=== PATIENT | female | born 1970 | race Caucasian/White ===

== ENCOUNTER 2024-11-21 05:44 | Day surgery (SDC) | payer OTHER ==
[~2024-11-21] VITALS: Ht 168 cm; Wt 140.3 kg
[~2024-11-21 05:44] MED LIST: AMLO10 PO; DULO60 PO; LOSARTAN POTASS50 M1 PO; METF500 PO; MULTI-VITAMIN1 EAC2 PO; OTEZLA30 MG PO; VITAMIN D31000 UNI1 PO
[2024-11-21] MEDS ORDERED: Lactated Ringer's 1,000 ML IV SCH (06:20)
[2024-11-21 07:04] VITALS: BP 133/84
--- NOTE | 2024-11-21 07:16 | NUR ---
History, Chart, Medications and Allergies reviewed before start of procedure. Patient up to Ambulate independently. Gait steady. Pre-Op teaching done. Pt verbalizes understanding. Patient confirms NPO status and agrees with scheduled surgery. Patient states colon prep results clear. Patient States Post-Procedure ride home has been arranged.
[2024-11-21] MEDS ORDERED: propofoL 60 ML IV ONE (07:25)
--- NOTE | 2024-11-21 07:31 | NUR ---
11/21/24 0731 Stephenie Boyd History, Chart, Medications and Allergies reviewed before start of procedure.MONITOR INTACT WITH CONTINUOUS PULSE OXIMETRY, CONTINUOUS END TITAL CO2, 3-LEAD EKG AND INTERMITTENT BLOOD PRESSURE.3-LEAD EKG REVIEWED WITH PHYSICIAN PRIOR TO START OF PROCEDURE.O2 VIA POM INTACT THROUGHOUT SEDATION/PROCEDURE.MARY GUEVARA CRNA PROVIDING MAC.
[2024-11-21 08:00] VITALS: BP 134/82
--- NOTE | 2024-11-21 08:21 | NUR ---
Patient up to Ambulate independently. Gait steady. Discharge instructions reviewed with patient. Patient verbalizes understanding. Copy given to patient to take home. Discharged via wheelchair to private car for ride home.
== END 2024-11-21 08:22 | disposition home or self-care (01) ==
LOC: ORSCMMR 05:44 → ORD 07:30 → ORSCMMR 08:22
PROVIDERS: Internal Medicine Gastroenterology
PROC: 0DBK8ZX Excision of Ascending Colon, Via Natural or Artificial Opening Endoscopic, Diagnostic (ICD-10-PCS; principal; 2024-11-21 07:30)
DX: Z12.11 Encounter for screening for malignant neoplasm of colon (principal); Z80.0 Family history of malignant neoplasm of digestive organs; D12.2 Benign neoplasm of ascending colon; I10 Essential (primary) hypertension; E11.9 Type 2 diabetes mellitus without complications; E66.01 Morbid (severe) obesity due to excess calories; Z68.42 Body mass index [BMI] 45.0-49.9, adult; Z79.84 Long term (current) use of oral hypoglycemic drugs; Z79.899 Other long term (current) drug therapy
CPT/HCPCS: 82947; 88305; J2704; J7120